=== PATIENT | male | born 1990 | race Two or more races ===

== ENCOUNTER 2024-06-26 18:23 | Emergency (ER) | payer SELFPAY ==
[2024-06-27] MEDS: LIDOCAINE 2% MDV 20ML VIAL SC ONE (01:10)
[2024-06-27] MEDS: NORCO, ANEXSIA 5/325MG TABLET (HYDROcodone/ACETAMINOPHEN) PO ONE (01:11)
[2024-06-27] MEDS: CEPHALEXIN 500 MG CAP PO ONE (01:11)
[2024-06-27] MEDS: BOOSTRIX VACCINE (TETANUS/DIPHTH/ACEL. PERTUSSIS) 0.5ML SYR IM.IMMUN ONE (01:16)
[2024-06-27 01:45] VITALS: BP 118/78; TEMP 98.8; O2SAT 98
[2024-06-27] MEDS: BACITRACIN OINTMENT 30GM TUBE TOP ONE (01:50)
[2024-06-27] MEDS ORDERED: CEPH500C PO (01:52)
== END 2024-06-27 02:22 | disposition home or self-care (01) ==
LOC: EDBD 18:23 → M ED 18:23
DX: S61.217A Laceration without foreign body of left little finger without damage to nail, initial encounter (principal); Y92.9 Unspecified place or not applicable; Y93.9 Activity, unspecified; Y99.9 Unspecified external cause status; F17.210 Nicotine dependence, cigarettes, uncomplicated; Z79.2 Long term (current) use of antibiotics; Z23 Encounter for immunization